=== PATIENT | male | born 1975 | race Caucasian/White ===

== ENCOUNTER 2018-01-23 13:42 | Emergency (ER) | payer MEDICAID ==
--- NOTE | 2018-01-23 14:26 | EDPHY ---
H & P Stated Complaint: "arm abcess from shooting up drugs" Time Seen by Provider: 01/23/18 14:04 HPI/ROS: CHIEF COMPLAINT: Abscess HISTORY OF PRESENT ILLNESS: The patient is a 42-year-old man who states that he started experimenting with IV drugs 2 months ago. He presents to the emergency department with an abscess to his right antecubital area. He 1st noticed it 2 days ago but today the pain is excruciating. No fever. He does have surrounding cellulitis. No trauma. Severity: Severe Modifying factors: None REVIEW OF SYSTEMS: Constitutional: denies: chills, fever, recent illness, recent injury EENTM: denies: blurred vision, double vision, nose congestion Respiratory: denies: cough, shortness of breath Cardiac: denies: chest pain, irregular heart rate, lightheadedness, palpitations Gastrointestinal/Abdominal: denies: abdominal pain, diarrhea, nausea, vomiting, blood streaked stools Genitourinary: denies: dysuria, frequency, hematuria, pain Musculoskeletal: denies: joint pain, muscle pain Skin: See HPI Neurological: denies: headache, numbness, paresthesia, tingling, dizziness, weakness Hematologic/Lymphatic: denies: blood clots, easy bleeding, easy bruising Immunologic/allergic: denies: HIV/AIDS, transplant 10 systems reviewed and negative except as noted EXAM: GENERAL: Well-appearing, well-nourished and in no acute distress. HEAD: Atraumatic, normocephalic. EYES: Pupils equal round and reactive to light, extraocular movements intact, sclera anicteric, conjunctiva are normal. ENT: TMs normal, nares patent, oropharynx clear without exudates. Moist mucous membranes. NECK: Normal range of motion, supple without lymphadenopathy or JVD. LUNGS: Breath sounds clear to auscultation bilaterally and equal. No wheezes rales or rhonchi. HEART: Regular rate and rhythm without murmurs, rubs or gallops. ABDOMEN: Soft, nontender, normoactive bowel sounds. No guarding, no rebound. No masses appreciated. BACK: No CVA tenderness, no spinal tenderness, step-offs or deformities EXTREMITIES: See skin exam, Normal range of motion, no pitting or edema. No clubbing or cyanosis. NEUROLOGICAL: Cranial nerves II through XII grossly intact. Normal speech, normal gait. 5/5 strength, normal movement in all extremities, normal sensation , normal reflexes PSYCH: Normal mood, normal affect. SKIN: Abscess to right antecubital region, fluctuant, surrounding cellulitis to mid forearm and slightly above the elbow. Normal elbow movement without pain. Source: Patient Exam Limitations: No limitations - Personal History Current Tetanus/Diphtheria Vaccine: Yes Current Tetanus Diphtheria and Acellular Pertussis (TDAP): Yes Tetanus Vaccine Date: 2-3 years ago - Medical/Surgical History Hx Asthma: No Hx Chronic Respiratory Disease: No Hx Diabetes: No Hx Cardiac Disease: No Hx Renal Disease: No Hx Cirrhosis: No Hx Alcoholism: Yes Hx HIV/AIDS: No Hx Splenectomy or Spleen Trauma: No Other PMH: MEDICAL- SCHIZO AFFECTIVE. SURGICAL- RHINOPLASTY - Family History Significant Family History: No pertinent family hx - Social History Smoking Status: Current every day smoker Alcohol Use: Heavy Drug Use: Heroin, Other Constitutional: Initial Vital Signs Temperature (C) 36.6 C 01/23/18 13:44 Heart Rate 114 H 01/23/18 13:44 Respiratory Rate 18 01/23/18 13:44 Blood Pressure 149/96 H 01/23/18 13:44 O2 Sat (%) 95 01/23/18 13:44 O2 Delivery Mode Room Air Allergies/Adverse Reactions: lithium Allergy (Verified 04/10/14 18:00) ziprasidone HCl [From Geodon] Allergy (Verified 04/10/14 17:59) ziprasidone mesylate [From Geodon] Allergy (Verified 04/10/14 17:59) Home Medications: Medication Instructions Recorded Ibuprofen 800 mg PO TID PRN #30 tablet 01/23/18 Sulfamethox/Tmp 800/160 mg 1 tab PO BID #14 tab 01/23/18 [Bactrim Ds] Medical Decision Making Procedures: Procedure: Abscess drainage. The patient's abscess was located on the right antecubital. I obtained verbal consent from the patient to drain the abscess who was informed about the possibility of bleeding and pain. The abscess was incised with an 11 blade scalpel and 12 cc of purulent drainage was expressed. I irrigated the wound and placed some packing. The patient tolerated the procedure well. The procedure was performed by myself. ED Course/Re-evaluation: Patient tolerated I and D. We discussed IV drug abuse. He plans to discontinue. I started him on Bactrim. We discussed side effects. He states that he can fill his prescription. Discussed indications for returning. Differential Diagnosis: Partial list of the Differential diagnosis considered include but were not limited to; abscess, cellulitis and although unlikely based on the history and physical exam, I also considered sepsis, foreign body. - Data Points Medications Given: Discontinued Medications Ibuprofen (Motrin) 800 mg PO EDNOW ONE Stop: 01/23/18 14:36 Last Admin: 01/23/18 14:46 Dose: 800 mg Trimethoprim/Sulfamethoxazole (Bactrim Ds) 1 ea PO EDNOW ONE PRN Reason: Protocol Stop: 01/23/18 14:35 Last Admin: 01/23/18 14:46 Dose: 1 ea Departure - Departure Disposition: Home, Routine, Self-Care Clinical Impression: Abscess of right arm Cellulitis Qualifiers: Site of cellulitis: extremity Site of cellulitis of extremity: upper extremity Laterality: right Qualified Code(s): L03.113 - Cellulitis of right upper limb Condition: Fair Instructions: Sulfamethoxazole (By mouth), Abscess (ED) Referrals: NONE *PRIMARY CARE P,. [Unknown] - As per Instructions [facility],. [Clinic] - 2-3 days, call for appt. Prescriptions: Ibuprofen 800 mg PO TID PRN #30 tablet PRN Reason: Pain, Moderate Sulfamethox/Tmp 800/160 mg [Bactrim Ds] 1 tab PO BID #14 tab
[2018-01-23] MEDS ORDERED: SULFAMETHOX/TMP 800/160 MG 1 TAB PO ONE (14:34)
[2018-01-23] MEDS ORDERED: IBUPROFEN 800 MG TAB PO ONE (14:35)
[2018-01-23 15:10] VITALS: BP 128/97
== END 2018-01-23 15:10 | disposition home or self-care (01) ==
PROC: 0H9DXZZ Drainage of Right Lower Arm Skin, External Approach (ICD-10-PCS; principal; 2018-01-23)
DX: L02.415 Cutaneous abscess of right lower limb (principal)

== ENCOUNTER 2018-02-21 20:45 | Emergency (ER) | payer MEDICAID ==
[~2018-02-21 20:45] MED LIST: CEPHALEXIN 500 MG CAP PO SCH
--- NOTE | 2018-02-21 21:03 | EDPHY ---
H & P Time Seen by Provider: 02/21/18 20:52 HPI/ROS: CHIEF COMPLAINT: Chest pain HISTORY OF PRESENT ILLNESS: Patient has a history of using methamphetamine including the last 2 days. No history of heart disease, diabetes, hypertension , elevated cholesterol. He presents with 3 days of constant left-sided chest pain which radiates down his left arm. Says it is worse with moving his arm, not pleuritic or exertional. It is associated with a little bit of cough but he is not short of breath. No recent injury or trauma. No fevers or chills. REVIEW OF SYSTEMS: Eye: no change in vision ENT: no sore throat Cardiac: HPI no palpitations or syncope Pulmonary: HPI no hemoptysis Abdomen: no vomiting, diarrhea, abdominal pain Musculoskeletal: no back pain or leg swelling Skin: Redness and swelling in the right AC at a site where he shot up previously. Neuro: no headache Constitutional: no fever : no urinary symptoms A comprehensive 10 point review of systems is otherwise negative aside from elements mentioned in the history of present illness. PAST MEDICAL HISTORY: Includes schizoaffective disorder and rhinoplasty Family history negative for coronary disease or venous thromboembolism. Social history: Tobacco user, denies cocaine General Appearance: Alert and conversant, cooperative. Eyes: No scleral icterus. ENT, Mouth: Normal mucous membranes. Respiratory: Normal respiratory effort, breath sounds equal, lungs are clear to auscultation. Cardiovascular: Regular rate and rhythm. No murmur. He Gastrointestinal: Abdomen is soft and non tender. Neurological: Alert, face symmetric, normal motor and sensory in extremities. Skin: Patient has redness swelling and a little bit of tenderness on the right AC 1 x 2 cm area. No lymphangitis and no eschar. Normal distal motor/sensory/ vascular in the hand and wrist. Normal movement of elbow. Musculoskeletal: No calf tenderness. Right arm compartments soft. Psychiatric: Not agitated. Emergency Department course/MDM: 12-lead EKG interpreted by me; official reading is in computer system. My interpretation is sinus rhythm rate 75 with no ischemic changes. Procedure: Incision and drainage attempted. Verbal consent obtained from the patient. Standard sterile technique and 1 mL of 1% lidocaine used on the right AC. #11 Scalpel blade used to stab incise superficially the most swollen portion, no pus obtained. Bleeding controlled with direct pressure. No vascular injury. Patient tolerated procedure well. CT angiography discussed and consented with D-dimer elevated at 956 p.m.. 2254: Normal CTA per Dr. Gutierrez. More likely musculoskeletal and pulmonary embolism or dissection or ACS. Patient comfortable, sleeping quietly, easily awakened, results discussed, stable for discharge. Smoking Status: Current every day smoker Constitutional: Initial Vital Signs Temperature (C) 36.8 C 02/21/18 20:46 Heart Rate 103 H 02/21/18 20:46 Respiratory Rate 18 02/21/18 20:46 Blood Pressure 153/101 H 02/21/18 20:46 O2 Sat (%) 97 02/21/18 20:46 O2 Delivery Mode Room Air Allergies/Adverse Reactions: lithium Allergy (Verified 02/21/18 20:49) ziprasidone HCl [From Geodon] Allergy (Verified 02/21/18 20:49) ziprasidone mesylate [From Geodon] Allergy (Verified 02/21/18 20:49) Home Medications: Medication Instructions Recorded Cephalexin [Keflex] 500 mg PO QID #28 cap 02/21/18 Medical Decision Making - Diagnostics EKG Interpretation: 12-lead EKG interpreted by me; official reading is in computer system. My interpretation is sinus rhythm rate 75 no ischemic changes. Imaging Results: Imaging Impressions Chest X-Ray 02/21/18 21:11 Impression: Normal chest x-ray. Chest/Thorax CTA 02/21/18 21:43 Impression: 1. No evidence of pulmonary embolus using CT protocol. 2. Normal CT chest. Findings discussed with BAMBI VELEZ at 2253 hour, 02/21/2018. Imaging: Discussed imaging studies w/ casino cashier manager Radiologist Differential Diagnosis: Differential diagnosis considered for chest pain including but not limited to myocardial ischemia, aortic dissection, pericarditis, pulmonary embolus, chest wall pain, pleural inflammation and pulmonary infectious causes. - Data Points Laboratory Results: Laboratory Results 02/21/18 21:15 02/21/18 21:15 02/21/18 02/21/18 02/21/18 21:20 21:19 21:15 WBC RBC Hgb POC Hgb 13.3 gm/dL L gm/dL (13.7-17.5) Hct POC Hct 39 % L % (40-51) MCV MCH MCHC RDW Plt Count MPV Neut % (Auto) Lymph % (Auto) Kershaw % (Auto) Eos % (Auto) Baso % (Auto) Nucleat RBC Rel Count Absolute Neuts (auto) Absolute Lymphs (auto) Absolute Monos (auto) Absolute Eos (auto) Absolute Basos (auto) Absolute Nucleated RBC Immature Gran % Immature Gran # D-Dimer POC Sodium 141 mEq/L mEq/L (135-145) Sodium 136 mEq/L mEq/L (135-145) POC Potassium 3.5 mEq/L mEq/L (3.3-5.0) Potassium 3.9 mEq/L mEq/L (3.5-5.2) POC Chloride 102 mEq/L mEq/L (97-110) Chloride 105 mEq/L mEq/L (97-110) Carbon Dioxide 24 mEq/l mEq/l (22-31) Anion Gap 7 mEq/L mEq/L (6-14) POC BUN 11 mg/dL mg/dL (7-23) BUN 13 mg/dL mg/dL (7-23) Creatinine 0.9 mg/dL mg/dL (0.7-1.3) POC Creatinine 1.0 mg/dL mg/dL (0.7-1.3) Estimated GFR > 60 Glucose 120 mg/dL H mg/dL (70-100) POC Glucose 125 mg/dL H mg/dL (70-100) Calcium 8.8 mg/dL mg/dL (8.5-10.4) POC Troponin I 0.00 ng/mL ng/mL (0.00-0.08) 02/21/18 02/21/18 21:15 21:15 WBC 7.86 10^3/uL 10^3/uL (3.80-9.50) RBC 4.51 10^6/uL 10^6/uL (4.40-6.38) Hgb 13.5 g/dL L g/dL (13.7-17.5) POC Hgb Hct 39.7 % L % (40.0-51.0) POC Hct MCV 88.0 fL fL (81.5-99.8) MCH 29.9 pg pg (27.9-34.1) MCHC 34.0 g/dL g/dL (32.4-36.7) RDW 12.7 % % (11.5-15.2) Plt Count 228 10^3/uL 10^3/uL (150-400) MPV 10.7 fL fL (8.7-11.7) Neut % (Auto) 58.2 % % (39.3-74.2) Lymph % (Auto) 29.5 % % (15.0-45.0) Kershaw % (Auto) 7.9 % % (4.5-13.0) Eos % (Auto) 3.3 % % (0.6-7.6) Baso % (Auto) 0.8 % % (0.3-1.7) Nucleat RBC Rel Count 0.0 % % (0.0-0.2) Absolute Neuts (auto) 4.58 10^3/uL 10^3/uL (1.70-6.50) Absolute Lymphs (auto) 2.32 10^3/uL 10^3/uL (1.00-3.00) Absolute Monos (auto) 0.62 10^3/uL 10^3/uL (0.30-0.80) Absolute Eos (auto) 0.26 10^3/uL 10^3/uL (0.03-0.40) Absolute Basos (auto) 0.06 10^3/uL 10^3/uL (0.02-0.10) Absolute Nucleated RBC 0.00 10^3/uL 10^3/uL (0-0.01) Immature Gran % 0.3 % % (0.0-1.1) Immature Gran # 0.02 10^3/uL 10^3/uL (0.00-0.10) D-Dimer 0.54 ug/mLFEU H ug/mLFEU (0.00-0.50) POC Sodium Sodium POC Potassium Potassium POC Chloride Chloride Carbon Dioxide Anion Gap POC BUN BUN Creatinine POC Creatinine Estimated GFR Glucose POC Glucose Calcium POC Troponin I Medications Given: Discontinued Medications Acetaminophen (Tylenol) 650 mg PO EDNOW ONE Stop: 02/21/18 21:12 Last Admin: 02/21/18 21:35 Dose: 650 mg Cephalexin (Keflex 500 Mg Prepack#4) 1 btl TAKEHOME EDNOW ONE PRN Reason: Protocol Stop: 02/21/18 22:31 Last Admin: 02/21/18 23:07 Dose: 1 btl Ibuprofen (Motrin) 600 mg PO EDNOW ONE Stop: 02/21/18 21:12 Last Admin: 02/21/18 21:34 Dose: 600 mg Point of Care Test Results: Chemistry 02/21/18 02/21/18 21:20 21:19 POC Sodium 141 mEq/L mEq/L (135-145) POC Potassium 3.5 mEq/L mEq/L (3.3-5.0) POC Chloride 102 mEq/L mEq/L (97-110) POC BUN 11 mg/dL mg/dL (7-23) POC Creatinine 1.0 mg/dL mg/dL (0.7-1.3) POC Glucose 125 mg/dL H mg/dL (70-100) POC Troponin I 0.00 ng/mL ng/mL (0.00-0.08) ISTAT H&H 02/21/18 21:19 POC Hgb 13.3 gm/dL L gm/dL (13.7-17.5) POC Hct 39 % L % (40-51) Departure - Departure Disposition: Home, Routine, Self-Care Clinical Impression: Cellulitis of right arm Chest pain Qualifiers: Chest pain type: unspecified Qualified Code(s): R07.9 - Chest pain, unspecified Condition: Good Instructions: Cephalexin (By mouth), Chest Pain (ED), Wound Infection (DC) Additional Instructions: Please fill your prescription and take full course of antibiotic. This will help to prevent worse infections for the future. Stop all drug use. [facility] Referrals: [facility],. [Clinic] - As per Instructions Prescriptions: Cephalexin [Keflex] 500 mg PO QID #28 cap
--- NOTE | 2018-02-21 21:04 | CPEKG ---
Test Reason : OPEN Blood Pressure : / mmHG Vent. Rate : 075 BPM Atrial Rate : 075 BPM P-R Int : 145 ms QRS Dur : 101 ms QT Int : 376 ms P-R-T Axes : 027 028 044 degrees QTc Int : 420 ms Sinus rhythm Confirmed by Sanjay Whitfield ([id number]) on 02/21/2018 9:03:40 PM Referred By: Confirmed By:Sanjay Whitfield
[2018-02-21] MEDS ORDERED: ACETAMINOPHEN 325 MG TAB PO ONE (21:11)
[2018-02-21] MEDS ORDERED: IBUPROFEN 600 MG TAB PO ONE (21:11)
[2018-02-21 21:24] LABS: PLATELET COUNT 228 10^3/uL (150-400)
[2018-02-21] MEDS ORDERED: IOPAMIDOL (ISOVUE 370) 100 ML BTL IV ONE (21:45)
[2018-02-21] MEDS ORDERED: CEPHALEXIN 500MG PREPACK#4 BTL TAKEHOME ONE (22:30)
[2018-02-21 23:10] VITALS: BP 140/68
== END 2018-02-22 00:09 | disposition home or self-care (01) ==
PROC: 0H9BXZZ Drainage of Right Upper Arm Skin, External Approach (ICD-10-PCS; principal; 2018-02-21)
DX: L03.113 Cellulitis of right upper limb (principal); R07.9 Chest pain, unspecified; F15.10 Other stimulant abuse, uncomplicated; F17.200 Nicotine dependence, unspecified, uncomplicated
CPT/HCPCS: 82435-PO; 82565-PO; 82947-PO; 84132-PO; 84295-PO; 84484-ER; 84520-PO; 85014-PO; Q9967

== ENCOUNTER 2018-05-02 16:08 | Emergency (ER) | payer MEDICAID ==
--- NOTE | 2018-05-02 17:07 | EDPHY ---
H & P Stated Complaint: generalized abd pain nausea meth use 5 days ago off all psych meds Time Seen by Provider: 05/02/18 16:27 HPI/ROS: CHIEF COMPLAINT: Nausea, loose stools HISTORY OF PRESENT ILLNESS: 42-year-old male with schizophrenia presents with nausea and loose stools. 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 Onset loose stools yesterday, associated with nausea. Tolerating oral fluids and food well. No abdominal pain or fever. REVIEW OF SYSTEMS: complete 10 point ROS reviewed and is negative except for the noted elements in the HPI - Personal History Current Tetanus Diphtheria and Acellular Pertussis (TDAP): Yes Tetanus Vaccine Date: 2-3 years ago - Medical/Surgical History Hx Asthma: No Hx Chronic Respiratory Disease: No Hx Diabetes: No Hx Cardiac Disease: No Hx Renal Disease: No Hx Cirrhosis: No Hx Alcoholism: Yes Hx HIV/AIDS: No Hx Splenectomy or Spleen Trauma: No Other PMH: MEDICAL- SCHIZO AFFECTIVE. SURGICAL- RHINOPLASTY - Social History Smoking Status: Current every day smoker Alcohol Use: Sober - Physical Exam Exam: General Appearance: Alert, cooperative Eyes: Pupils equal and round, no conjunctival pallor or injection ENT, Mouth: Mucous membranes moist Neck: Normal inspection Respiratory: Lungs are clear to auscultation Cardiovascular: Regular rate and rhythm Gastrointestinal: Abdomen is soft and nontender Neurological: A&O, nonfocal, normal gait Skin: Warm and dry Extremities: Normal inspection Psychiatric: Mood and affect normal Constitutional: Initial Vital Signs Temperature (C) 37.2 C 05/02/18 16:17 Heart Rate 93 05/02/18 16:17 Respiratory Rate 18 05/02/18 16:17 Blood Pressure 115/80 05/02/18 16:17 O2 Sat (%) 96 05/02/18 16:17 O2 Delivery Mode Room Air Allergies/Adverse Reactions: lithium Allergy (Verified 05/02/18 16:16) ziprasidone HCl [From Geodon] Allergy (Verified 05/02/18 16:16) ziprasidone mesylate [From Geodon] Allergy (Verified 05/02/18 16:16) Home Medications: Medication Instructions Recorded NK [No Known Home Meds] 05/02/18 Medical Decision Making ED Course/Re-evaluation: This patient presents with nausea and diarrhea. Likely viral in etiology. Abdominal exam is benign. Zofran 4 mg ODT given. Instructions given. Differential Diagnosis: Differential diagnosis includes though it is not limited to appendicitis, cholecystitis, diverticulitis, pyelonephritis, bowel perforation, small bowel obstruction. - Data Points Medications Given: Discontinued Medications Ondansetron HCl (Zofran Odt) 4 mg PO EDNOW ONE Stop: 05/02/18 17:10 Last Admin: 05/02/18 17:23 Dose: 4 mg Departure - Departure Disposition: Home, Routine, Self-Care Clinical Impression: Acute gastroenteritis Condition: Good Instructions: Gastroenteritis (ED) Additional Instructions: 1. Clear liquids for 24 hours. 2. Advance diet as tolerated. I suggest the BRAT diet to start: bananas, rice, applesauce and toast. 3. Return for worsening symptoms, persistent vomiting, abdominal pain, any concerns. 4. Take Imodium as directed on the packaging as needed for diarrhea. Referrals: [facility],. [Clinic] - As per Instructions
[2018-05-02] MEDS ORDERED: ONDANSETRON DISINTEGRATING 4 MG TAB PO ONE (17:09)
[2018-05-02 17:27] VITALS: BP 128/78
== END 2018-05-02 17:31 | disposition home or self-care (01) ==
DX: K52.9 Noninfective gastroenteritis and colitis, unspecified (principal); F20.9 Schizophrenia, unspecified

== ENCOUNTER 2018-05-14 11:50 | Emergency (ER) | payer MEDICAID ==
--- NOTE | 2018-05-14 11:54 | EDPHY ---
H & P Source: Patient Exam Limitations: No limitations - Personal History Tetanus Vaccine Date: 2-3 years ago - Medical/Surgical History Hx Asthma: No Hx Chronic Respiratory Disease: No Hx Diabetes: No Hx Cardiac Disease: No Hx Renal Disease: No Hx Cirrhosis: No Hx Alcoholism: Yes Hx HIV/AIDS: No Hx Splenectomy or Spleen Trauma: No Other PMH: MEDICAL- SCHIZO AFFECTIVE. SURGICAL- RHINOPLASTY - Social History Smoking Status: Current every day smoker Time Seen by Provider: 05/14/18 11:53 HPI/ROS: HPI: This is a 42-year-old male who presents with Chief Complaint: pt with general body aches and cough, meth use Location: Chest Quality: Cough Duration: 2 days Signs and Symptoms: no fever, no nausea, no vomiting, no diarrhea, no urinary symptoms, no chest pain, no shortness of breath, no wheezing, + cough, no sore throat, no neck stiffness, no joint pain, no swollen glands, no ear pain, no rash Timing: Acute, constant Severity: [id number] Context: Patient is homeless, admits to inhalation methamphetamine use, presents with 2 day history of nonproductive cough and generalized body aches. Did not receive influenza vaccine. Positive tobacco user. Patient denies any wheezing, shortness of breath, lower extremity edema, neck stiffness, headache, fever. No primary care provider. No history of lung disease. Modifying Factors: None Comment: ROS: A comprehensive 10 system review of systems is otherwise negative aside from elements mentioned in the history of present illness. MEDICAL/SURGICAL/SOCIAL HISTORY: Medical history: Methamphetamine use, schizoaffective disorder Surgical history: Rhinoplasty Social history: Homeless. Tobacco user. Family history noncontributory. CONSTITUTIONAL: untidy nontoxic-appearing middle-aged white male, awake and alert, no obvious distress HEENT: Atraumatic and normocephalic, PERRL, EOMI. Nares patent; no rhinorrhea; no nasal mucosal edema. Tympanic membranes clear. Oropharynx clear, no exudate and moist pink mucosa. Airway patent. No lymphadenopathy. No meningismus. Cardiovascular: Normal S1/S2, regular rate, regular rhythm, without murmur rub or gallop. PULMONARY/CHEST: Symmetrical and nontender. Clear to auscultation bilaterally. Good air movement. No accessory muscle usage. ABDOMEN: Soft, nondistended, nontender, no rebound, no guarding, no peritoneal signs, no masses or organomegaly. No CVAT. EXTREMITIES: 2/2 pulses, strength 5/5, no deformities, no clubbing, no cyanosis or edema. NEUROLOGICAL: no focal neuro deficits. GCS 15. SKIN: Warm and dry, no erythema. no rash. Good capillary refill. (Cathy Osuna) Constitutional: Initial Vital Signs Temperature (C) 36.7 C 05/14/18 11:58 Heart Rate 100 05/14/18 11:58 Respiratory Rate 16 05/14/18 11:58 Blood Pressure 110/68 05/14/18 11:58 O2 Sat (%) 94 05/14/18 11:58 O2 Delivery Mode Room Air Allergies/Adverse Reactions: lithium Allergy (Verified 05/02/18 16:16) ziprasidone HCl [From Geodon] Allergy (Verified 05/02/18 16:16) ziprasidone mesylate [From Geodon] Allergy (Verified 05/02/18 16:16) Home Medications: Medication Instructions Recorded Azithromycin [Zithromax] 250 mg PO DAILY #6 tab 05/14/18 Medical Decision Making ED Course/Re-evaluation: Vital signs reviewed and stable upon arrival. RSV/influenza swab ordered and negative Chest x-ray my read shows no lori opacity, effusion, widened mediastinum, pneumothorax. + findings consistent with airway disease Patient is homeless and a smoker; will treat with antibiotics for bacterial bronchitis Given azithromycin 500 mg, Decadron 10 mg and albuterol inhaler to take home in the emergency room. Patient was given a prescription for azithromycin 5 days and [facility]. This patient was seen under the supervision of my secondary supervising physician. I evaluated care for this patient independently. (Cathy Osuna) The patient was evaluated and managed by the physician bilingual administrative assistant. I have reviewed this chart and I agree with the findings and plan of care as documented , as indicated by my signature. I am the secondary supervising physician. ( Indigo Davila) Differential Diagnosis: Differential diagnosis includes but is not limited to viral syndrome, upper respiratory infection, bronchitis, pneumonia, influenza. (Cathy Osuna) - Data Points Medications Given: Discontinued Medications Albuterol Sulfate (Proventil Inh Prepack) 1 mdi KURT DAWKINS ONE Stop: 05/14/18 12:48 Last Admin: 05/14/18 13:06 Dose: 1 mdi Azithromycin (Zithromax) 500 mg PO EDNOW ONE PRN Reason: Protocol Stop: 05/14/18 12:47 Last Admin: 05/14/18 13:05 Dose: 500 mg Dexamethasone (Decadron) 10 mg PO EDNOW ONE Stop: 05/14/18 12:47 Last Admin: 05/14/18 13:05 Dose: 10 mg Departure - Departure Disposition: Home, Routine, Self-Care Clinical Impression: Bronchitis, Tobacco use disorder, Methamphetamine use Condition: Good Instructions: Acute Bronchitis (ED) Additional Instructions: Please refrain from using tobacco, Methamphetamine or marijuana products. Take antibiotic as directed. Do not skip a dose. Use albuterol inhaler every 4-6 hours as needed for wheezing, shortness of breath. [facility] if no improvement in 5-7 days. Referrals: [facility],. [Clinic] - As per Instructions Prescriptions: Azithromycin [Zithromax] 250 mg PO DAILY #6 tab
[2018-05-14] MEDS ORDERED: DEXAMETHASONE 4 MG TAB PO ONE (12:46)
[2018-05-14] MEDS ORDERED: AZITHROMYCIN 250 MG TAB PO ONE (12:46)
[2018-05-14] MEDS ORDERED: ALBUTEROL INH PREPACK MDI TAKEHOME ONE (12:47)
[2018-05-14 13:09] VITALS: BP 122/67
== END 2018-05-14 13:09 | disposition home or self-care (01) ==
DX: J40 Bronchitis, not specified as acute or chronic (principal); F15.10 Other stimulant abuse, uncomplicated; F25.9 Schizoaffective disorder, unspecified; F17.200 Nicotine dependence, unspecified, uncomplicated; Z59.0 Homelessness